=== PATIENT | female | born 1990 | race Caucasian/White ===

== ENCOUNTER 2019-09-02 10:26 | Outpatient (REF) | payer OTHER, SELFPAY ==
--- NOTE | 2019-09-02 14:30 | PAPFT_PTH ---
PATIENT: Haylie Ballesteros LOC: [facility] U#:[id number] AGE/SX: 29/F ROOM: RE09/02/[address]: Gabby Ferris : 1990 BED: DIS: 09/02/2019 SPEC #: [id number] RECD: 09/03/19 12:40 STATUS: ANIL REQ #: [id number] NEHAL: 09/02/19 14:[address]: Gabby Ferris DEPT: [facility] Cytology RECD BY: Leta Jose ENTERED: 09/03/19 12:41 SP TYPE: PAPFT OTHR DR: Sharee Costa MD Tissues: 1 - CX/ENDOCX FOR PAP SMEARS Procedures: PAP THIN PREP/UVM Screening Comments: [id number]
== END 2019-09-02 10:46 ==
LOC: NCHCN 10:26
PROVIDERS: PCP Family Medicine; Visit Provider Physician Assistant Medical
DX: Z12.4 Encounter for screening for malignant neoplasm of cervix (principal); Z01.419 Encounter for gynecological examination (general) (routine) without abnormal findings
CPT/HCPCS: 88142

== ENCOUNTER 2019-09-02 18:32 | Outpatient (REF) | payer OTHER, SELFPAY ==
[2019-09-02 21:53] LABS: HCT 40.2 % (36.0-46.0); HGB 13.6 g/dL (12.0-15.5); Mean Corp. HGB Concentration 33.8 g/dL (32.0-36.0); Mean Corpuscular Volume 88.7 fL (80-95); Mean Platelet Volume 12.3 fL (8.0-11.0); Platelet Count 232 x1000/uL (130-400); RBC 4.53 m/cumm (4.00-5.20); RBC Distribution Width 12.1 % (11.7-14.6); White Blood Cell Count 7.77 k/cumm (4.4-10.8)
[2019-09-03 00:04] LABS: TSH 0.97 uIU/mL (0.36-3.74)
== END 2019-09-02 18:52 ==
LOC: NCHCN 18:32
PROVIDERS: PCP Family Medicine; Visit Provider Nurse Practitioner Family
DX: R53.83 Other fatigue (principal)
CPT/HCPCS: 85027; 84443

== ENCOUNTER 2020-04-15 19:07 | Outpatient (REF) | payer MEDICAID, SELFPAY ==
[2020-04-17 14:51] LABS: Chlamydia Result Negative (Negative); GC Result Negative (Negative)
== END 2020-04-15 19:08 | disposition home or self-care (01) ==
LOC: NCHCN 19:07
PROVIDERS: PCP Family Medicine; Visit Provider Physician Assistant Medical
DX: N89.8 Other specified noninflammatory disorders of vagina (principal)
CPT/HCPCS: 87491; 87591; 87480; 87510; 87660

== ENCOUNTER 2020-06-24 14:50 | Outpatient (REF) | payer MEDICAID, SELFPAY ==
[2020-06-26 15:19] LABS: COVID-19 RT-PCR UVMMC Result Negative (Negative)
== END 2020-06-24 14:51 | disposition home or self-care (01) ==
LOC: LBN 14:50
PROVIDERS: PCP Family Medicine; Visit Provider Physician Assistant Medical
DX: J06.9 Acute upper respiratory infection, unspecified (principal); Z20.822 Contact with and (suspected) exposure to COVID-19
CPT/HCPCS: U0003

== ENCOUNTER 2020-08-19 03:03 | Emergency (ER) | payer MEDICAID, SELFPAY ==
[2020-08-19 03:13] VITALS: BP 114/74; PULSE 83; RESP 16; TEMP 36.2; O2SAT 97
--- NOTE | 2020-08-19 03:19 | ED.GENADUL_ITS ---
Discharge Plan Disposition Patient Disposition: HOME Condition: Improving Discharge Details Clinical Impression: Urinary tract infection Primary Care Provider: Sharee Costa ED Provider: Apollo Hi Home Meds and New Rx's Prescriptions: New cephalexin 500 mg capsule 500 mg PO TID 7 Days Qty: 21 RF: 0 Continued zolpidem 5 MG tablet 5 mg PO HS RF: 0 escitalopram oxalate [Lexapro] 10 mg Tablet 15 mg PO DAILY RF: 0 Discharge Instructions Instructions: Urinary Tract Infection in Women (ED) Additional Instructions: Home to rest this evening. May use the provided Pyridium to help decrease burning and discomfort. This will likely turn your urine orange. Take antibiotics as prescribed. May continue Tylenol and/or ibuprofen as needed for pain Return to the ER for any acute concerns. Medical Decision Making This is a 30-year-old female reports 3 days of urinary urgency, frequency, burning. Does report having outpatient urinalysis performed with results still pending. Developed some achy back pain tonight for which she sought evaluation in the ED. Patient arrives to the ER pleasant, interactive, afebrile. Her exam notes mild suprapubic tenderness without rebound or guarding. Urinalysis consistent with acute UTI. Will treat with Pyridium, Keflex. She is stable and appropriate for outpatient management. HPI General Mode of arrival: ambulatory . Date/Time Provider Initiated Documentation: 08/19/20 03:13 . Limitations to Documentation: no limitations . Information obtained by: patient . History of Present Illness 30 year old F presents to the emergency department with the chief complaint of Dysuria for 3 days, described as moderate, and is localized to the abdomen and pelvis. Patient reports no radiation. Patient started experiencing this day(s) and it has been intermittent. No relieving factors improve symptom(s), No exacerbating factors reported . Patient notes denies fever/chills and nausea/vomiting. Patient did receive the following treatments prior to arrival, none Related Data Home Medications Medication Instructions Recorded Confirmed zolpidem 5 mg PO HS 08/30/12 08/19/20 cephalexin 500 mg PO TID 7 Days #21 cap 08/19/20 escitalopram oxalate [Lexapro] 15 mg PO DAILY 08/19/20 08/19/20 Previous Rx's Medication Instructions Recorded cephalexin 500 mg PO TID 7 Days #21 cap 08/19/20 Allergies Allergy/AdvReac Type Severity Reaction Status Date / Time sertraline HCl [From Zoloft] Allergy Severe Anaphylaxsi Unverified 12/17/14 09:38 s General Stated Complaint: Urinary NGOZI: 3 Review of Systems Narrative: No other illness. 6 systems reviewed and otherwise negative [facility] Social History Smoking/Tobacco Use Status: Current every day Tobacco Type: e-cigarettes Smoking risk assessment performed?: Yes Alcohol Intake: former Drug use: Occasionally Substance use type: marijuana Do you feel safe at home: Yes Do you feel safe in your relationship?: Yes Exam Narrative Exam Narrative: GEN: awake, alert, oriented 3. Pleasant, well groomed, interactive. HEAD: Normocephalic, atraumatic EYES: PERRL, EOMI NECK: Full ROM, no OSMANY, no menigismus CHEST/RESP: Nontender, clear to auscultation bilateral, no wheeze/rhonchi/rales CARDIOVASCULAR: RRR, no murmur, rub shabana. 2+ Rad pulse bilateral ABDOMEN: Soft, minimal mild suprapubic tenderness to palpation, no mass. +Bowel sounds EXT: Full ROM, no edema, no rash Neuro: Grossly normal neurologic exam, conversant, interactive. Psych: Speech fluent, thoughts congruent, affect normal Course Vital Signs Vital signs: Vital Signs Temperature 36.2 C L 08/19/20 03:13 Pulse 83 08/19/20 03:13 Respiratory Rate 16 08/19/20 03:13 Blood Pressure 114/74 08/19/20 03:13 Pulse Oximetry 97 08/19/20 03:13 Temperature 36.2 C L 08/19/20 03:13 Temperature Source Skin 08/19/20 03:13 Pulse 83 08/19/20 03:13 Respiratory Rate 16 08/19/20 03:13 Blood Pressure 114/74 08/19/20 03:13 Blood Pressure Position Standing 08/19/20 03:13 Pulse Oximetry 97 08/19/20 03:13 Oxygen Delivery Method Room Air 08/19/20 03:13 Oxygen Flow Rate 0 08/19/20 03:13 Pain Level 8 08/19/20 03:13
[2020-08-19 03:26] LABS: Bilirubin Negative (Negative); Blood Large (Negative); Clarity Sl Cloudy (Clear); Glucose Negative (Negative); Ketones Negative (Negative); Leukocyte Esterase Small (Negative); Nitrite Negative (Negative); Specific Gravity 1.025 (1.005-1.025); Urobilinogen 0.2 EU/dL (Up TO 0.2)
[2020-08-19] MEDS: Phenazopyridine 200 MG TAB PO (03:29)
[2020-08-19] MEDS: Phenazopyridine 100 MG TAB, 2 TABS/BTL PO (03:30)
[2020-08-19 03:36] LABS: Epithelial Cells Few HPF (Negative)
[2020-08-19 03:37] LABS: Bacteria Few HPF (Negative); C & S Indicated? Yes; Casts Negative LPF (Negative); Crystals Negative HPF (Negative); Mucus Negative (Negative)
[2020-08-19] MEDS: Cephalexin 500 MG CAP, 4 CAPS/BTL PO (03:48)
[2020-08-19] MEDS: Acetaminophen 500 MG TAB 1000 MG PO (03:48)
--- NOTE | 2020-08-21 10:43 | W.ED.FU ---
Date of service: 08/19/20 on keflex with staph uti, appropriate coverage post chart review
== END 2020-08-19 03:35 | disposition home or self-care (01) ==
PROVIDERS: Emergency Provider Emergency Medicine; PCP Family Medicine
DX: N39.0 Urinary tract infection, site not specified (principal)
CPT/HCPCS: 81025; 87077; 99283; 81003; 81015; 87086; 87186

== ENCOUNTER 2020-12-09 14:43 | Outpatient (REF) | payer MEDICAID, SELFPAY ==
[2020-12-10 14:46] LABS: Chlamydia Result Negative (Negative); GC Result Negative (Negative)
== END 2020-12-09 14:44 | disposition home or self-care (01) ==
LOC: LBN 14:43
PROVIDERS: PCP Family Medicine; Visit Provider Obstetrics & Gynecology
DX: Z11.3 Encounter for screening for infections with a predominantly sexual mode of transmission (principal); Z30.430 Encounter for insertion of intrauterine contraceptive device
CPT/HCPCS: 87491; 87591

== ENCOUNTER 2021-05-01 04:10 | Emergency (ER) | payer MEDICAID, SELFPAY ==
[2021-05-01 04:18] VITALS: BP 117/73; PULSE 90; RESP 14; TEMP 36.7; O2SAT 100
--- NOTE | 2021-05-01 04:33 | ED.GENADUL_ITS ---
Discharge Plan Disposition Patient Disposition: HOME Condition: Stable Discharge Details Clinical Impression: Nausea vomiting and diarrhea Primary Care Provider: Gabby Ferris ED Provider: Sunil Flores Home Meds and New Rx's Prescriptions: New ondansetron 4 mg tablet,disintegrating 4 mg PO Q8H PRN (Reason: nausea and vomiting) Qty: 30 0RF Continued zolpidem 5 MG tablet 5 mg PO HS 0RF Label Comments: uses prn escitalopram oxalate [Lexapro] 10 mg Tablet 15 mg PO DAILY 0RF clonazepam 1 mg Tablet 1 mg PO DAILY 0RF albuterol 90 mcg/actuation Aerosol 90 mcg INHALATION PRN PRN0RF Kyleena 17.5 mcg/24 hrs (5 yrs) 19.5 mg Intrauterine Device 1 device INTRAUTERINE ONCE 0RF Rx Instructions: as a single dose Discharge Instructions Instructions: Acute Nausea and Vomiting (ED) Additional Instructions: your symptoms are likely related to a food born illness and should resolve in a day or two drink fluids to stay hydrated and for the diarrhea you can take imodim or pepto bismol if you feel more ill, have severe worsening pain or persistent vomit return to the emergency department Medical Decision Making 31 yo female comes in with n/v and diarrhea. She states around 8pm last night she started to have diarrhea and then an hour later started to have vomit. This has continued throughout the night every 30 minutes or so and so she came here. She denies any fevers, chills, chest pain, and when she is vomitting she has upper abdomen pain otherwise no pain. She denies any recent travel/antibiotics. She is in no distress on exam. She has a soft nontender abdomen on exam. I suspect this is food related given rapid onset of symptoms, and she does think it may have been a chicken salad she ate yesterday. She felt well all day yesterday prior to these symptoms. Will treat her with zofran and fluids and check her electrolytes. Given her benign abdominal exam doubt surgical pathology such as appendicitis or cholecystitis or sbo. She just started with the symptoms so stool sample testing not indicated and has no risk factors for c diff. pt with mild leukocytosis likely reactive from the vomit vs inflammatory from possible gastroenteritis. Has mild increase in anion gap likely from dehydration. She feels much better, has no abdominal tenderness and is tolerating po. Suspect food related illness, will provide zofran and advised to take imodium. Advised to see if pcp if not better in a few days and return precautions given Differential Diagnosis Differential Diagnosis: food related illness, gastroenteritis, electrolyte abnormality Lab Data Lab results reviewed: Yes I reviewed the patient's lab results. HPI General Mode of arrival: ambulatory . Date/Time Provider Initiated Documentation: 05/01/21 04:12 . Limitations to Documentation: no limitations . Information obtained by: patient . History of Present Illness 31 year old F presents to the emergency department with the chief complaint of vomit and di arrhea, described as moderate, Patient started experiencing this hour(s) (8) and it has been constant and intermittent. improves with No relieving factors improve symptom(s), No exacerbating factors reported . Patient notes denies chest pain, diaphoresis and fever/chills. Patient did receive the following treatments prior to arrival, none Related Data Home Medications Medication Instructions Recorded Confirmed zolpidem 5 mg tablet 5 mg PO HS 08/30/12 05/01/21 escitalopram oxalate 10 mg tablet 15 mg PO DAILY 08/19/20 01/19/21 (Lexapro) albuterol 90 mcg/actuation aerosol 90 mcg INHALATION PRN PRN 05/01/21 05/01/21 inhaler clonazepam 1 mg tablet 1 mg PO DAILY 05/01/21 05/01/21 levonorgestrel (Kyleena) 1 device INTRAUTERINE ONCE 05/01/21 05/01/21 ondansetron 4 mg disintegrating 4 mg PO Q8H PRN #30 tab 05/01/21 tablet Previous Rx's Medication Instructions Recorded ondansetron 4 mg disintegrating 4 mg PO Q8H PRN #30 tab 05/01/21 tablet Allergies Allergy/AdvReac Type Severity Reaction Status Date / Time sertraline HCl [From Zoloft] Allergy Severe Anaphylaxsi Unverified 05/01/21 04:27 s General Stated Complaint: Nausea/Vomit/Diar NGOZI: 3 Review of Systems All systems reviewed & are unremarkable except as noted in HPI and below Constitutional Constitutional: Denies chills, Denies fever(s) and Denies weakness Cardiovascular Cardiovascular: Denies chest pain and Denies dyspnea Respiratory Respiratory: Denies cough and Denies dyspnea Genitourinary Genitourinary: Denies dysuria Integumentary/Breasts Skin/Breast: Denies rash Neurologic Neurologic: Denies weakness PFSH All Active Problems (Updated 05/01/21 @ 05:29 by Sunil Flores MD) Nausea vomiting and diarrhea (Acute) Irregular menses (Acute) Urinary tract infection (Acute) Social History Smoking/Tobacco Use Status: Current every day Tobacco Type: e-cigarettes Smoking risk assessment performed?: Yes Alcohol Intake: current Alcohol Intake frequency: a few times a month Drug use: Daily Substance use type: marijuana Do you feel safe at home: Yes Do you feel safe in your relationship?: Yes History History 0 Para Hx # Term Pregnancies Multiple births Hx # Pregnancies Ectopic pregnancies AB induced Hx Number of Living Children AB spontaneous Exam Const General: no acute distress Orientation: alert HENMT Head: normal to inspection Ears: external ears normal General nose exam: external nose normal Mouth: moist mucous membranes Eyes General: appearance normal, both eyes and all related structures Neck Neck: normal visual inspection Resp Effort & Inspection: normal respiratory effort and able to speak in complete s entences Cardio Rate: regular rate GI Palpation: soft and nontender Skin General skin exam: no rashes or lesions noted Neuro General: patient alert and patient oriented x3 Extrem General: normal to inspection Psych Mental Status: mental status grossly normal Course Vital Signs Vital signs: Vital Signs Temperature 36.7 C 05/01/21 04:18 Pulse 90 05/01/21 04:18 Respiratory Rate 14 05/01/21 04:18 Blood Pressure 117/73 05/01/21 04:18 Pulse Oximetry 100 05/01/21 04:18 Temperature 36.7 C 05/01/21 04:18 Temperature Source Temporal Artery Scan 05/01/21 04:18 Pulse 90 05/01/21 04:18 Respiratory Rate 14 05/01/21 04:18 Respiratory Effort Non-Labored 05/01/21 04:21 Blood Pressure 117/73 05/01/21 04:18 Blood Pressure Position Sitting 05/01/21 04:18 Pulse Oximetry 100 05/01/21 04:18 Oxygen Delivery Method Room Air 05/01/21 04:18 Oxygen Flow Rate 0 05/01/21 04:18 Pain Level 4 05/01/21 04:18 PAWSS Have you Been Recently Intoxicated or Drunk Within the Last 30 days?: No Have you Ever Experienced Previous Episodes of Alcohol Withdrawal?: No Have you ever Experienced Withdrawal Seizures?: No Have you ever Experienced Delirium Tremens(DT)s?: No Have you ever undergone Alcohol Rehabilitation Treatment (i.e, inpt ot outpatient treatment programs)?: No Have you ever Experienced Blackouts?: No Have you ever Combined Alcohol with other Downers within the last 90 days?: No Have you ever Combined Alcohol with any other Substance of Abuse during the last 90 days?: No Positive Blood Alcohol level on Presentation? [PCS.BAL]: No Evidence of Increased Autonomic Activity (i.e. HR>120, tremor, sweating, agitation, nausea)?: No Result: 0
[2021-05-01] MEDS: Normal Saline 1,000 ML 1000 ML IV (04:40)
[2021-05-01] MEDS: Ondansetron 4 MG/2 ML VIAL IVP (04:40)
[2021-05-01 04:48] LABS: Abs Immature Grans 0.04 10^3/uL (0.0-0.06); Absolute Basophil Count 0.04 10^3/uL (0.0-0.2); Absolute Eosinophil Count 0.02 10^3/uL (0.0-0.7); Absolute Lymphocyte Count 0.28 10^3/uL (1.2-3.4); Absolute Neutrophil Count 11.67 10^3/uL (1.2-6.7); Basophils % 0.3; Eosinophils % 0.2; HCT 47.3 % (36.0-46.0); HGB 15.7 g/dL (11.2-15.7); Immature Grans % 0.3; Lymphocytes % 2.3; MCH 29.3 pg (27.0-33.0); MCHC 33.2 % (32.0-36.0); MCV 88.2 fL (80-95); MPV 11.1 fL (8.0-11.0); Monocytes % 2.7; Neutrophils % 94.2; Nucleated RBC 0 %; Platelet Count 200 10^3/uL (130-400); RBC 5.36 10^6/uL (3.93-5.22); RDW 11.8 % (11.7-14.6); RDW-SD 37.8 fL; WBC 12.39 10^3/uL (4.4-10.8)
[2021-05-01 04:50] LABS: Absolute Monocyte Count 0.33 10^3/uL (0.1-0.8)
[2021-05-01 05:01] LABS: ALT 18 U/L (14-59); AST 13 U/L (15-37); Alkaline Phosphatase 64 U/L (46-116); BUN 23 mg/dL (7-18); Bilirubin, Total 1.3 mg/dL (0.2-1.0); CREATININE 0.9 mg/dL (0.55-1.02); Calcium 9.2 mg/dL (8.5-10.1); Chloride 104 mmol/L (98-107); Glucose 118 mg/dL (74-106); Lipase 56 U/L (73-393); Magnesium 2.1 mg/dL (1.8-2.4); Potassium 4.6 mmol/L (3.5-5.1); Sodium 138 mmol/L (136-145); Total Protein 8.7 g/dL (6.4-8.2)
[2021-05-01 05:36] VITALS: BP 106/63; PULSE 79; RESP 12; TEMP 36.9; O2SAT 100
[2021-05-01 05:55] VITALS: BP 117/73; PULSE 90; RESP 12; TEMP 36.9; O2SAT 100
== END 2021-05-01 05:58 | disposition home or self-care (01) ==
PROVIDERS: Emergency Provider Emergency Medicine; PCP Physician Assistant Medical
DX: R19.7 Diarrhea, unspecified (principal); R11.2 Nausea with vomiting, unspecified; D72.829 Elevated white blood cell count, unspecified
CPT/HCPCS: 36415; 80053; 81025; 83690; 96361; 96374; 99284; 83735; 85025; 99283; J2405

== ENCOUNTER 2021-05-01 15:51 | Emergency (ER) | payer MEDICAID, SELFPAY ==
[2021-05-01 15:55] VITALS: BP 98/65; PULSE 103; RESP 16; TEMP 37.6; O2SAT 100
--- NOTE | 2021-05-01 16:13 | ED.GENADUL_ITS ---
Discharge Plan Disposition Patient Disposition: HOME Condition: Stable Discharge Details Clinical Impression: Sludge in gallbladder, Gastroenteritis Primary Care Provider: Gabby Ferris ED Provider: Janet Collins Home Meds and New Rx's Prescriptions: Continued zolpidem 5 MG tablet 5 mg PO HS 0RF Label Comments: uses prn escitalopram oxalate [Lexapro] 10 mg Tablet 15 mg PO DAILY 0RF clonazepam 1 mg Tablet 1 mg PO DAILY 0RF albuterol 90 mcg/actuation Aerosol 90 mcg INHALATION PRN PRN0RF Kyleena 17.5 mcg/24 hrs (5 yrs) 19.5 mg Intrauterine Device 1 device INTRAUTERINE ONCE 0RF Rx Instructions: as a single dose ondansetron 4 mg tablet,disintegrating 4 mg PO Q8H PRN (Reason: nausea and vomiting) Qty: 30 0RF Discharge Instructions Instructions: Gastroenteritis (ED) Additional Instructions: CT shows some sludge in gallbladder however no evidence for kidney stones, no evidence for kidney infection or bladder infection. Please take Tylenol or Ibuprofen with food every 4-6 hours as needed for pain and swelling. Follow up with primary care provider in 3-5 days. Return to ED sooner if any worsening or concerns. Increase oral fluids. Covid test is still pending, if this comes back positive we will call you. Please wear a mask or quarentine until the result returns. Referrals: Gabby Ferris PA [Primary Care Provider] - 3 days Medical Decision Making 31-year-old female presents to the ED for the second time today with complaint of Fever and body aches. She was seen earlier for N/V/D and sent home with Ria. She reports now running a fever of 101 t max with ongoing nausea and back pain. She was slightly tachycardic at 103 and BP of 98 systolic. Mild llq abd pain with palpation. Denies any sore throat, ear pain. Patient is unvaccinated for Covid. Will repeat CBC, CMP, do a urinalysis and swab for Covid. CBC shows no leukocytosis, CMP largely within normal limits bilirubin is 1.3 with slightly elevated. Urinalysis shows 40 ketones large blood no leukocytes no nitrites. Is a 20 RBCs. Covid is pending at this time. CT Abd Pelvis WO: FINDINGS: Limitations: Limited by noncontrast technique. Lungs: No concerning finding. Liver: The liver is unremarkable. Gallbladder and bile ducts: The gallbladder demonstrates layering density consistent with noncalcified stones or sludge. No abnormal distention, wall thickening or pericholecystic fluid. No biliary ductal dilatation. Pancreas: The pancreas is unremarkable. Spleen: The spleen is unremarkable. Adrenal glands: The adrenal glands are unremarkable. Kidneys and ureters: No hydronephrosis or nephrolithiasis. Stomach and bowel: Unremarkable. No obstruction. No mucosal thickening. Appendix: No evidence of appendicitis. Intraperitoneal space: Unremarkable. No free air. No significant fluid collection. Vasculature: The aorta is unremarkable. Lymph nodes: Unremarkable. No enlarged lymph nodes. Urinary bladder: No focal wall thickening of the urinary bladder. Reproductive: Intrauterine contraceptive device is seen. Uterus and adnexa are otherwise unremarkable. Bones/joints: Unremarkable. No acute fracture. Soft tissues: Unremarkable. IMPRESSION: No detectable acute abdominopelvic process or etiology for abdominal pain. Thank you for allowing us to participate in the care of your patient. Dictated and Authenticated by: Baylee Pratt DO Discussed CT results and lab results with patient who verbalized understanding. Patient has received a liter of normal saline. Discussed gastroenteritis and follow-up with PCP patient verbalized understanding. This text was generated using [employer] dictation system, please disregard any oddities of phrase or misspellings. HPI General Mode of arrival: ambulatory . Date/Time Provider Initiated Documentation: 05/01/21 15:52 . Limitations to Documentation: no limitations . Information obtained by: patient, RN notes reviewed and old records reviewed . HPI Narrative: 31 year old female presents to the ED for the second time today with complaint of Fever and body aches. She was seen earlier for N/V/D and sent home with Ria. She reports now running a fever of 101 t max with ongoing nausea and back pain. She was slightly tachycardic at 103 and BP of 98 systolic. Mild llq abd pain with palpation. Denies any sore throat, ear pain. Patient is unvaccinated for Covid. Related Data Home Medications Medication Instructions Recorded Confirmed zolpidem 5 mg tablet 5 mg PO HS 08/30/12 05/01/21 escitalopram oxalate 10 mg tablet 15 mg PO DAILY 08/19/20 05/01/21 (Lexapro) albuterol 90 mcg/actuation aerosol 90 mcg INHALATION PRN PRN 05/01/21 05/01/21 inhaler clonazepam 1 mg tablet 1 mg PO DAILY 05/01/21 05/01/21 levonorgestrel (Kyleena) 1 device INTRAUTERINE ONCE 05/01/21 05/01/21 ondansetron 4 mg disintegrating 4 mg PO Q8H PRN #30 tab 05/01/21 05/01/21 tablet Previous Rx's Medication Instructions Recorded ondansetron 4 mg disintegrating 4 mg PO Q8H PRN #30 tab 05/01/21 tablet Allergies Allergy/AdvReac Type Severity Reaction Status Date / Time sertraline HCl [From Zoloft] Allergy Severe Anaphylaxsi Unverified 05/01/21 16:01 s General Stated Complaint: Nausea/Vomit/Diar NGOZI: 3 Review of Systems All systems reviewed & are unremarkable except as noted in HPI and below Constitutional Constitutional: Reports fever(s) Gastrointestinal Gastrointestinal: Denies abdominal pain and Reports nausea Genitourinary Genitourinary: Denies difficulty voiding and Denies dysuria Musculoskeletal Musculoskeletal: Reports back pain PFSH All Active Problems (Updated 05/01/21 @ 17:56 by Janet Collins) Nausea vomiting and diarrhea (Acute) Sludge in gallbladder (Acute) Gastroenteritis (Acute) Irregular menses (Acute) Urinary tract infection (Acute) Social History Smoking/Tobacco Use Status: Current every day Tobacco Type: e-cigarettes Smoking risk assessment performed?: Yes Alcohol Intake: current Alcohol Intake frequency: a few times a month Alcohol type: wine and hard liquor Drug use: Daily Substance use type: marijuana Do you feel safe at home: Yes Do you feel safe in your relationship?: Yes History History 0 Para Hx # Term Pregnancies Multiple births Hx # Pregnancies Ectopic pregnancies AB induced Hx Number of Living Children AB spontaneous Exam Narrative Exam Narrative: Constitutional: Alert and oriented x3. Appears stated age. Normal body habitus. Head: Normocephalic, no trauma. Eyes: Pupils PERRL, Red reflex noted, EOM's intact. Eyelids symmetrical without lesions, discharge, or swelling. ENT: Bilateral TM's WNL, External ear normal to inspection, no mastoid TTP, swelling, or erythema, Nasal turbinates WNL, no nasal discharge. Normal dentition, Posterior pharynx WNL, no exudate. Chest: RRR, Normal S1, S2, distal pulses intact. Resp: Lungs clear to auscultation bilaterally, no wheezes, rales, or rhonchi. Abdomen: Soft, non-distended, Normoactive bowel sounds all 4 quads. Musculoskeletal: Normal gait, 5/5 strength to all four extremities. Skin: No suspicious rashes or lesions. Capillary refill less than 2 sec. Neurologic: Cranial nerves II-XII intact. Alert and oriented x 3. Motor: No deficits noted. Sensory: Intact bilaterally all 4 extremities. Reflexes: DTR's intact bilaterally.. Hematologic/Lymphatic: No ecchymosis, no lymphadenopathy. Course Vital Signs Vital signs: Vital Signs Temperature 37.6 C 05/01/21 15:55 Pulse 103 H 05/01/21 15:55 Respiratory Rate 16 05/01/21 15:55 Blood Pressure 98/65 L 05/01/21 15:55 Pulse Oximetry 100 05/01/21 15:55 Temperature 37.6 C 05/01/21 15:55 Temperature Source Temporal Artery Scan 05/01/21 15:55 Pulse 103 H 05/01/21 15:55 Respiratory Rate 16 05/01/21 15:55 Respiratory Effort Non-Labored 05/01/21 15:57 Blood Pressure 98/65 L 05/01/21 15:55 Blood Pressure Position Sitting 05/01/21 15:55 Pulse Oximetry 100 05/01/21 15:55 Oxygen Delivery Method Room Air 05/01/21 15:55 Oxygen Flow Rate 0 05/01/21 15:55 Pain Level 6 05/01/21 15:55 PAWSS Have you Been Recently Intoxicated or Drunk Within the Last 30 days?: No Have you Ever Experienced Previous Episodes of Alcohol Withdrawal?: No Have you ever Experienced Withdrawal Seizures?: No Have you ever Experienced Delirium Tremens(DT)s?: No Have you ever undergone Alcohol Rehabilitation Treatment (i.e, inpt ot outpatient treatment programs)?: No Have you ever Experienced Blackouts?: No Have you ever Combined Alcohol with other Downers within the last 90 days?: No Have you ever Combined Alcohol with any other Substance of Abuse during the last 90 days?: No Positive Blood Alcohol level on Presentation? [PCS.BAL]: No Evidence of Increased Autonomic Activity (i.e. HR>120, tremor, sweating, agitation, nausea)?: No Result: 0
[2021-05-01 16:24] LABS: Bilirubin Negative (Negative); Blood Large (Negative); Clarity Clear (Clear); Glucose Negative (Negative); Ketones 40 mg/dL (Negative); Leukocyte Esterase Negative (Negative); Nitrite Negative (Negative); Specific Gravity >= 1.030 (1.005-1.025); Urobilinogen 0.2 EU/dL (Up TO 0.2)
[2021-05-01] MEDS: Normal Saline 1,000 ML 1000 ML IV (16:28)
--- NOTE | 2021-05-01 16:30 | DI.CT_ITS ---
Exam(s) CT ABDOMEN PELVIS WO EXAM: CT ABDOMEN PELVIS WO CLINICAL HISTORY: Back Pain, LLQ pain, Hematuria. TECHNIQUE: Imaging Protocol: Axial computed tomography images with coronal and sagittal reformatted images were created and reviewed CONTRAST MATERIAL: Intravenous: none Oral: None COMPARISON: No exams were available for comparison FINDINGS: VISUALIZED LUNG BASES: No nodules nor pleural effusions evident. ABDOMEN: There is no ascites. LIVER: There are no obvious focal hepatic lesions evident of this noninfused study. GALLBLADDER/BILIARY: No obvious gallbladder pathology. CBD is not dilated. PANCREAS: No evidence of pancreatic mass nor dilatation of the pancreatic duct. SPLEEN: Spleen is not enlarged. No obvious intrasplenic lesions. ADRENALS: There are no significant adrenal masses. KIDNEYS:No cysts evident. No solid renal masses. No calculi nor hydronephrosis. . ABDOMINAL AORTA: Abdominal aorta is not enlarged. LYMPH NODES: There is no retroperitoneal nor paraaortic adenopathy. ABDOMINAL WALL: No evidence of significant anterior abdominal wall nor inguinal hernia. GI: Bowel loops are fluid-filled but not significantly dilated. Colon is not collapsed. PELVIS: LYMPH NODES: There is no intrapelvic nor inguinal adenopathy. GI: No evidence of appendicitis.No evidence of sigmoid diverticulitis. URINARY BLADDER: No calculi nor obvious masses evident REPRODUCTIVE: There is an IUD in the uterus which appears to be in satisfactory position. Follicular cysts are noted in the ovaries. No obvious extraovarian adnexal masses nor free fluid in the pelvis OSSEOUS: There is a nonexpansile 6 x 6 millimeter bone density in the posterior aspect of the right h ip acetabulum. This is probably benign bone island. No lytic osseous lesions. No fractures evident Sacroiliac joints unremarkable. IMPRESSION: 1. There is an IUD in the uterus which appears to be in satisfactory position. No significant abnorm al adnexal findings although the right ovary is somewhat difficult to delineate from the adjacent flu id filled small bowel loops. There are no obvious extraovarian adnexal masses nor free fluid in the pelvis. 2. Fluid-filled but not dilated small bowel loops. Correlation with any enteritis clinical findings recommended. There is no mesenteric lymphadenopathy. 3. Appendix is difficult to locate is a separate structure but there is no obvious evidence of acute appendicitis. No diverticulitis. RADIATION DOSE DELIVERED: 586.48mGy.cm Total DLP DATA REPOSITORY: All CT scans at this facility are submitted to the National Radiology Data Registry (NRDR) Dose Index Registry (DIR) with the [employer] (ACR). RADIATION OPTIMIZATION: All CT scans at this facility use at least one of these dose optimization te chniques: automated exposure control; mA and/or kV adjustment per patient size (includes targeted exa ms where dose is matched to clinical indication); or iterative reconstruction.
[2021-05-01 16:32] LABS: Bacteria Negative HPF (Negative); C & S Indicated? No; Casts Negative LPF (Negative); Crystals Negative HPF (Negative); Epithelial Cells Few HPF (Negative); Mucus Negative (Negative)
[2021-05-01 16:38] LABS: Source Nasal/Nares
[2021-05-01 16:39] LABS: Abs Immature Grans 0.02 10^3/uL (0.0-0.06); Absolute Basophil Count 0.02 10^3/uL (0.0-0.2); Absolute Lymphocyte Count 0.24 10^3/uL (1.2-3.4); Absolute Monocyte Count 0.24 10^3/uL (0.1-0.8); Absolute Neutrophil Count 4.72 10^3/uL (1.2-6.7); Basophils % 0.4; HCT 41.2 % (36.0-46.0); HGB 13.7 g/dL (11.2-15.7); Immature Grans % 0.4; Lymphocytes % 4.6; MCH 29.1 pg (27.0-33.0); MCHC 33.3 % (32.0-36.0); MCV 87.5 fL (80-95); MPV 11.4 fL (8.0-11.0); Monocytes % 4.6; Nucleated RBC 0 %; Platelet Count 158 10^3/uL (130-400); RBC 4.71 10^6/uL (3.93-5.22); RDW 11.8 % (11.7-14.6); RDW-SD 38.3 fL; WBC 5.24 10^3/uL (4.4-10.8)
[2021-05-01 16:54] LABS: ALT 11 U/L (14-59); AST 11 U/L (15-37); Alkaline Phosphatase 53 U/L (46-116); Anion Gap 10.7 mmol/L (3-11); BUN 17 mg/dL (7-18); Bilirubin, Total 1.3 mg/dL (0.2-1.0); CO2 22.3 mmol/L (21.0-32.0); CREATININE 0.9 mg/dL (0.55-1.02); Calcium 8.4 mg/dL (8.5-10.1); Chloride 104 mmol/L (98-107); Glucose 100 mg/dL (74-106); Magnesium 1.8 mg/dL (1.8-2.4); Potassium 3.8 mmol/L (3.5-5.1); Sodium 137 mmol/L (136-145); Total Protein 7.3 g/dL (6.4-8.2)
[2021-05-01 16:57] LABS: HCG Qual (Serum) Negative
--- NOTE | 2021-05-01 17:30 | DI.VRAD_ITS ---
PROCEDURE INFORMATION: Exam: CT Abdomen And Pelvis Without Contrast Exam date and time: 05/01/2021 4:39 PM Age: 31 years old Clinical indication: Other: Back pain, llq pain, hematuria TECHNIQUE: Imaging protocol: Computed tomography of the abdomen and pelvis without contrast. Radiation optimization: All CT scans at this facility use at least one of these dose optimization techniques: automated exposure control; mA and/or kV adjustment per patient size (includes targeted exams where dose is matched to clinical indication); or iterative reconstruction. COMPARISON: No relevant prior studies available. FINDINGS: Limitations: Limited by noncontrast technique. Lungs: No concerning finding. Liver: The liver is unremarkable. Gallbladder and bile ducts: The gallbladder demonstrates layering density consistent with noncalcified stones or sludge. No abnormal distention, wall thickening or pericholecystic fluid. No biliary ductal dilatation. Pancreas: The pancreas is unremarkable. Spleen: The spleen is unremarkable. Adrenal glands: The adrenal glands are unremarkable. Kidneys and ureters: No hydronephrosis or nephrolithiasis. Stomach and bowel: Unremarkable. No obstruction. No mucosal thickening. Appendix: No evidence of appendicitis. Intraperitoneal space: Unremarkable. No free air. No significant fluid collection. Vasculature: The aorta is unremarkable. Lymph nodes: Unremarkable. No enlarged lymph nodes. Urinary bladder: No focal wall thickening of the urinary bladder. Reproductive: Intrauterine contraceptive device is seen. Uterus and adnexa are otherwise unremarkable. Bones/joints: Unremarkable. No acute fracture. Soft tissues: Unremarkable. IMPRESSION: No detectable acute abdominopelvic process or etiology for abdominal pain. Dictated and Authenticated by: Baylee Pratt MD. Ordering:CHRISTIAN Gonazles MD
[2021-05-01 18:16] VITALS: BP 93/60; PULSE 98; RESP 16; TEMP 37.7; O2SAT 100
[2021-05-01 18:18] LABS: COVID-19 PCR Negative (Negative)
== END 2021-05-01 18:27 | disposition home or self-care (01) ==
PROVIDERS: Emergency Provider Registered Nurse Emergency; PCP Physician Assistant Medical
DX: K82.8 Other specified diseases of gallbladder (principal); K52.9 Noninfective gastroenteritis and colitis, unspecified; K50.90 Crohn's disease, unspecified, without complications; R00.0 Tachycardia, unspecified; R10.32 Left lower quadrant pain; Z28.3 Underimmunization status
CPT/HCPCS: 36415; 80053; 87635; 96360; 99284; 74176; 81003; 81015; 83735; 84703; 85025

== ENCOUNTER 2021-05-31 02:44 | Outpatient (CLI) | payer MEDICAID, SELFPAY ==
[2021-05-31 14:36] LABS: ALT 21 U/L (14-59); AST 17 U/L (15-37); Albumin 4.3 g/dL (3.4-5.0); Alkaline Phosphatase 64 U/L (46-116); Anion Gap 4.8 mmol/L (3-11); BUN 14 mg/dL (7-18); CO2 29.2 mmol/L (21.0-32.0); CREATININE 0.7 mg/dL (0.55-1.02); Calcium 9.2 mg/dL (8.5-10.1); Calculated LDL 71 mg/dL (<100); Chloride 103 mmol/L (98-107); Cholesterol 138 mg/dL (<200); Glucose 90 mg/dL (74-106); HDL Cholesterol 58 mg/dL (40-60); Potassium 3.7 mmol/L (3.5-5.1); Sodium 137 mmol/L (136-145); Total Protein 7.6 g/dL (6.4-8.2); Triglyceride 46 mg/dL (<150)
== END 2021-05-31 02:45 | disposition home or self-care (01) ==
LOC: LBO 02:44
PROVIDERS: PCP Physician Assistant Medical; Referring Provider Surgery; Visit Provider Surgery
DX: K82.8 Other specified diseases of gallbladder (principal); R11.2 Nausea with vomiting, unspecified; R19.7 Diarrhea, unspecified; Z83.438 Family history of other disorder of lipoprotein metabolism and other lipidemia; Z97.5 Presence of (intrauterine) contraceptive device
CPT/HCPCS: 36415; 80053; 80061

== ENCOUNTER → 2021-06-04 00:09 | Outpatient (CLI) | payer MEDICAID, SELFPAY ==
--- NOTE | 2021-06-04 07:15 | DI.US_ITS ---
Exam(s) US ABDOMEN EXAM: US ABDOMEN CLINICAL HISTORY: s/s of chornic hole sludge in GB.hemangioma,nausea,diarrhea.r11.2 TECHNIQUE: Ultrasound abdomen performed using standard protocol. COMPARISON: CT CT ABDOMEN PELVIS WO from 05/01/2021 FINDINGS: ABDOMINAL AORTA AND IVC: Visualized portions normal caliber. PANCREAS: Normal where visualized. LIVER: Normal. Hepatopedal flow in the Portal Vein. The liver measures 14.7 cm long. There is a 3.4 x 3.3 x 2.4 cm hyperechoic lesion in the right lobe of the liver. GALLBLADDER:No evidence of cholelithiasis. No evidence of wall thickening. No pericholecystic fluid i dentified. BILIARY SYSTEM: Common bile duct measures < 7 mm. No intrahepatic biliary ductal dilation. WAHL'S SIGN: Negative. KIDNEYS: Kidneys are symmetric in size. No evidence of renal calculi. No evidence of hydronephrosis. No renal mass or cyst identified. SPLEEN: Not enlarged. ASCITES: None seen. IMPRESSION: 1. Unremarkable gallbladder. No biliary ductal dilatation or stones. 2. 3.4 x 3.4 x 2.4 cm hyperechoic lesion in the right lobe of the liver. Sonographically, this is goncalves ggestive of a hepatic hemangioma. CT or MRI of the liver using the hepatic hemangioma protocol is re commended for further evaluation. DATA REPOSITORY:
== END ==
PROVIDERS: PCP Physician Assistant Medical; Visit Provider Surgery
DX: R11.2 Nausea with vomiting, unspecified (principal); R19.7 Diarrhea, unspecified; K76.89 Other specified diseases of liver; K82.8 Other specified diseases of gallbladder; D18.03 Hemangioma of intra-abdominal structures
CPT/HCPCS: 76700

== ENCOUNTER → 2021-07-09 01:09 | Outpatient (CLI) | payer MEDICAID, SELFPAY ==
--- NOTE | 2021-07-09 07:15 | DI.NM_ITS ---
Exam(s) NM HEPATOBILIARY CCK GRP EXAM: NM HEPATOBILIARY CCK GRP CLINICAL HISTORY: ruq pain/fatty food intol/nausea/diarrhea, hemangioma. TECHNIQUE: Injected dose: 5 mCi Tc-99 mebrofenin Initial dynamic images: According to protocol. Post-Gallbladder fillin.9 mcg CCK was administered according to protocol. Addition images: According to protocol. COMPARISON: US US ABDOMEN from 06/04/2021 FINDINGS: Normal hepatic transit time. Prompt excretion into the small bowel. Prompt excretion into the gallbladder. The gallbladder ejection fraction was 80 percent which is wit hin normal limits. IMPRESSION: 1. No evidence of acute cholecystitis or acalculous disease. SNM guidelines: Gallbladder visualization should be present by 3 hours. Delayed aomofay-ml-hqtgj moreno sit beyond 60 min raises the suspicion for partial common bile duct (CBD) obstruction. Gallbladder ejection fraction <35% has a good correlation with acalculous disease (i.e., chronic acal culous cholecystitis, cystic duct syndrome, sphincter of Oddi disease).
== END ==
PROVIDERS: PCP Physician Assistant Medical; Visit Provider Surgery
DX: R10.11 Right upper quadrant pain (principal); R11.0 Nausea; R19.7 Diarrhea, unspecified; K52.9 Noninfective gastroenteritis and colitis, unspecified; Z83.438 Family history of other disorder of lipoprotein metabolism and other lipidemia
CPT/HCPCS: 78227

== ENCOUNTER 2021-07-14 14:09 | Outpatient (REF) | payer MEDICAID, SELFPAY ==
[2021-07-14 14:24] LABS: C Diff PCR Negative (Negative)
[2021-07-15 11:43] LABS: Campylobacter PCR Negative (Negative); Salmonella PCR Negative (Negative); Shiga Toxin PCR Negative (Negative); Shigella/Enteroinvasive Ecoli Negative (Negative)
[2021-07-16 20:59] LABS: Pancreatic Elastase, F >500 mcg/g
== END 2021-07-14 14:10 | disposition home or self-care (01) ==
LOC: LBN 14:09
PROVIDERS: PCP Physician Assistant Medical; Visit Provider Surgery
DX: R10.11 Right upper quadrant pain (principal); R11.0 Nausea; K52.9 Noninfective gastroenteritis and colitis, unspecified
CPT/HCPCS: 87493; 87505; 82656; 83630

== ENCOUNTER 2021-12-06 12:02 | Outpatient (REF) | payer MEDICAID, SELFPAY ==
[2021-12-08 10:33] LABS: COVID-19 RT-PCR UVMMC Result Negative (Negative)
== END 2021-12-06 12:03 | disposition home or self-care (01) ==
LOC: NCHCN 12:02
PROVIDERS: PCP Physician Assistant Medical; Visit Provider Physician Assistant Medical
DX: Z20.822 Contact with and (suspected) exposure to COVID-19 (principal); J02.9 Acute pharyngitis, unspecified
CPT/HCPCS: U0003

== ENCOUNTER 2022-04-06 11:53 | Emergency (ER) | payer MEDICAID, SELFPAY ==
[2022-04-06] VITALS (19 sets, daily range): BP systolic 89–118; BP diastolic 44–66; PULSE 62–82; RESP 15; TEMP 36.4; O2SAT 99–100
--- NOTE | 2022-04-06 11:54 | ED.GENADUL_ITS ---
Discharge Plan Disposition Patient Disposition: Home Condition: Stable Discharge Details Clinical Impression: Fall involving snowboard as cause of accidental injury, Low back pain Primary Care Provider: Gabby Ferris ED Provider: Hunter Jordan Home Meds and New Rx's Prescriptions: No Action ondansetron 4 mg tablet,disintegrating 4 mg PO Q6H PRN (Reason: nausea and vomiting) Qty: 20 0RF magnesium 250 mg tablet 500 mg PO DAILY loperamide [Imodium A-D] 2 mg tablet 2 mg PO Q6H PRN ondansetron HCl 8 mg tablet 8 mg PO Q6H PRN PRN (Reason: nausea and vomiting) Qty: 30 6RF ondansetron HCl 4 mg tablet 4 mg PO Q6H PRN (Reason: nausea and vomiting) Qty: 30 12RF zolpidem 5 MG tablet 5 mg PO HS Patient Comments: uses prn escitalopram oxalate [Lexapro] 10 mg Tablet 15 mg PO DAILY clonazepam 1 mg Tablet 1 mg PO DAILY albuterol 90 mcg/actuation Aerosol 90 mcg INHALATION PRN PRN Kyleena 17.5 mcg/24 hrs (5 yrs) 19.5 mg Intrauterine Device 1 device INTRAUTERINE ONCE Rx Instructions: as a single dose ondansetron 4 mg tablet,disintegrating 4 mg PO Q8H PRN (Reason: nausea and vomiting) Qty: 30 0RF vilazodone [Viibryd] 10 mg tablet 10 mg PO DAILY Patient Comments: TAKE ONE TABLET BY MOUTH ONCE DAILY TAKE IT FOOD 17 DAYS PRIOR TO SLEEP STUDY DECREASE TO HALF-TAB FOR THREE DAYS, THEN STOP Discharge Instructions Additional Instructions: You are seen in the emergency department for your low back pain. Your CAT scan showed no signs of any fractures in your back. Your x-ray showed no sign of any broken bones in your knee. Please take acetaminophen and ibuprofen on the bottle as needed for pain. The emergency department if you have worsening pain. Please follow-up with your primary care provider as needed next week. Discharge Data Discharge Date/Time-TO BE ENTERED AT DEPARTURE: 04/06/22 16:20 Medical Decision Making Primary survey intact. Reassuring shock with minimal hypotension which is not dissimilar to prior blood pressures on prior ED visits. Secondary survey patient has tenderness to her lumbar spine. Given midline lumbar spinal tenderness will proceed to CT. Given left knee pain will obtain left knee plain films. Will treat with ketorolac. Will treat with 1 L of IV fluid bolus and Lidoderm patch. 8 PM Patient's labs returned and were reassuring. As well as her imaging. She was discharged with return indications. Patient did have slightly low blood pressure at the time of checkout. She was mentating clearly. She had tolerated p.o. She received IV fluids. No nausea nor vomiting of no concern for intra-abdominal injury. Chronic conditions affecting the care of the patient: None History obtained from an outside historian: Paramedics External record review: N/A Diagnostic interpretations performed by me: Per my independent interpretation chest x-ray shows: Radiographs with no acute osseous abnormalities Medications: Analgesia Social determinants of health affecting disposition: Not applicable Response to therapies provided: Pain improved with analgesia. HPI General Date/Time Provider Initiated Documentation: 04/06/22 11:54 . HPI Narrative: This is a previously healthy 32-year-old female arriving via EMS in the setting of a fall that occurred this morning while she was snowboarding. Patient is a new snowboarder and was reportedly on the beginning slope. She was moving slowly when she fell and twisted and landed on her back and knees. She complains of pain mostly in her left knee and lower back. She denies loss of consciousness and neck pain. She was wearing a helmet at the time. She received prehospital acetaminophen via the IV. Related Data Home Medications Medication Instructions Recorded Confirmed zolpidem 5 mg tablet 5 mg PO HS 08/30/12 04/06/22 escitalopram oxalate 10 mg tablet 15 mg PO DAILY 08/19/20 04/06/22 (Lexapro) albuterol 90 mcg/actuation aerosol 90 mcg inhalation PRN PRN 05/01/21 04/06/22 inhaler clonazepam 1 mg tablet 1 mg PO DAILY 05/01/21 04/06/22 levonorgestrel 17.5 mcg/24 hrs 1 device intrauterine ONCE 05/01/21 04/06/22 (5yrs) 19.5mg intrauterine device (Kyleena) ondansetron 4 mg disintegrating 4 mg PO Q8H PRN nausea and 05/01/21 04/06/22 tablet vomiting #30 tabs ondansetron 4 mg disintegrating 4 mg PO Q6H PRN nausea and 05/27/21 04/06/22 tablet vomiting #20 tabs magnesium 250 mg tablet 500 mg PO DAILY 07/12/21 04/06/22 loperamide 2 mg tablet (Imodium 2 mg PO Q6H PRN 07/22/21 04/06/22 A-D) ondansetron HCl 8 mg tablet 8 mg PO Q6H PRN PRN nausea and 07/22/21 04/06/22 vomiting #30 tabs ondansetron HCl 4 mg tablet 4 mg PO Q6H PRN nausea and 08/19/21 04/06/22 vomiting #30 tabs vilazodone 10 mg tablet (Viibryd) 10 mg PO DAILY 04/06/22 04/06/22 Previous Rx's Medication Instructions Recorded ondansetron 4 mg disintegrating 4 mg PO Q8H PRN nausea and 05/01/21 tablet vomiting #30 tabs ondansetron 4 mg disintegrating 4 mg PO Q6H PRN nausea and 05/27/21 tablet vomiting #20 tabs ondansetron HCl 8 mg tablet 8 mg PO Q6H PRN PRN nausea and 07/22/21 vomiting #30 tabs ondansetron HCl 4 mg tablet 4 mg PO Q6H PRN nausea and 08/19/21 vomiting #30 tabs Allergies Allergy/AdvReac Type Severity Reaction Status Date / Time sertraline HCl [From Zoloft] Allergy Severe Anaphylaxsi Verified 04/06/22 12:12 s General NGOZI: 3 PFSH All Active Problems (Updated 04/06/22 @ 15:37 by Hunter Jordan MD) Fall involving snowboard as cause of accidental injury (Acute) Low back pain (Acute) Nausea (Acute) Chronic diarrhea (Acute) Postprandial RUQ pain (Acute) Hemangioma (Acute) Family history of elevated blood lipids (Acute) IUD (intrauterine device) in place (Acute) Irregular menses (Acute) Urinary tract infection (Acute) Social History Smoking/Tobacco Use Status: Current every day Tobacco Type: e-cigarettes Smoking risk assessment performed?: Yes Alcohol Intake: current Alcohol Intake frequency: a few times a month Alcohol type: wine and hard liquor Drug use: Daily Substance use type: marijuana Do you feel safe at home: Yes Do you feel safe in your relationship?: Yes History History 0 Para Hx # Term Pregnancies Multiple births Hx # Pregnancies Ectopic pregnancies AB induced Hx Number of Living Children AB spontaneous Exam Narrative Exam Narrative: General: Uncomfortable-appearing in no acute distress speaking in complete sentences. Head: Normocephalic, atraumatic Ear, nose, mouth, throat: Grossly normal inspection. Normal voice, handling secretions normally. Neck: Trachea midline. Cardiovascular: Well-perfused distal extremities. No murmurs. Respiratory: Nonlabored respiration. Clear lungs bilaterally. Gastrointestinal: Nondistended abdomen. Nontender abdomen. Musculoskeletal: Left knee tenderness on palpation. Skin: Normal for age and race, grossly normal temperature and turgor. No acute rash. Neurologic: Alert and appropriate, no apparent acute deficits. Psychiatric: Mood and manner are appropriate. Grooming and personal hygiene are appropriate.
--- NOTE | 2022-04-06 12:00 | DI.CT_ITS ---
Exam(s) CT LUMBAR SPINE WO EXAM: CT LUMBAR SPINE WO CLINICAL HISTORY: Low back pain status post snowboarding injury. TECHNIQUE: Imaging Protocol: Axial computed tomography images with coronal and sagittal reformatted images were created and reviewed COMPARISON: CT CT ABDOMEN PELVIS WO from 05/01/2021 FINDINGS: Bones: The last intervertebral disc space is designated the L5/S1 level for the numbering purpose of this examination. The vertebral body heights are well maintained. Alignment is satisfactory. No fracture is seen. No gross evidence of significant disc bulging or disc herniation. The visualized SI joints and sacrum are will maintained. Soft Tissues: The paraspinal soft tissues are unremarkable. IMPRESSION: Normal CT examination of the lumbar spine. RADIATION DOSE DELIVERED: 408.82mGy.cm Total DLP DATA REPOSITORY: All CT scans at this facility are submitted to the National Radiology Data Registry (NRDR) Dose Index Registry (DIR) with the [employer] (A[employer]). RADIATION OPTIMIZATION: All CT scans at this facility use at least one of these dose optimization te chniques: automated exposure control; mA and/or kV adjustment per patient size (includes targeted exa ms where dose is matched to clinical indication); or iterative reconstruction.
--- NOTE | 2022-04-06 12:00 | DI.RAD_ITS ---
Exam(s) XR KNEE LT 3V AP,LAT,LAYO EXAM: XR KNEE LT 3V AP,LAT,LAYO CLINICAL HISTORY: Left anterior knee pain status post snowboarding. TECHNIQUE: 2D digital imaging was performed. Three views. COMPARISON: No exams were available for comparison FINDINGS: BONES: No acute fracture is present. No bony destructive lesion is seen. JOINTS: The knee is normally aligned. No joint effusion is seen. SOFT TISSUE: Normal. IMPRESSION: Normal radiographs of the left knee. DATA REPOSITORY: RADIATION DOSE DELIVERED:
[2022-04-06] MEDS: Normal Saline 1,000 ML 1000 ML IV (12:24)
[2022-04-06] MEDS: Lidocaine 5% Patch 1 PATCH TP (12:24)
[2022-04-06] MEDS: Ketorolac 15 MG/ML VIAL IVP (12:24)
[2022-04-06 12:35] LABS: HCT 40.9 % (36.0-46.0); HGB 13.6 g/dL (11.2-15.7); MCH 29.7 pg (27.0-33.0); MCHC 33.3 % (32.0-36.0); MCV 89 fL (80-95); MPV 11.3 fL (8.0-11.0); Platelet Count 214 10^3/uL (130-400); RBC 4.58 10^6/uL (3.93-5.22); RDW 12.2 % (11.7-14.6); RDW-SD 39.9 fL; WBC 9.81 10^3/uL (4.4-10.8)
[2022-04-06 12:54] LABS: Anion Gap 10.4 mmol/L (3-11); BUN 19 mg/dL (7-18); CO2 24.6 mmol/L (21.0-32.0); CREATININE 0.8 mg/dL (0.55-1.02); Calcium 9.3 mg/dL (8.5-10.1); Chloride 103 mmol/L (98-107); Estimated GFR 101.59 (mL/min/1.73m2); Glucose 84 mg/dL (74-106); Potassium 3.9 mmol/L (3.5-5.1); Sodium 138 mmol/L (136-145)
[2022-04-06 12:57] LABS: HCG Qual (Serum) Negative
[2022-04-06 13:06] LABS: ETHANOL BLOOD < 3.0 mg/dL (<10)
== END 2022-04-06 16:20 | disposition home or self-care (01) ==
PROVIDERS: Emergency Provider Emergency Medicine; PCP Physician Assistant Medical
DX: G89.11 Acute pain due to trauma (principal); M54.50 Low back pain, unspecified; M25.562 Pain in left knee; I95.9 Hypotension, unspecified; V00.311A Fall from snowboard, initial encounter; X50.1XXA Overexertion from prolonged static or awkward postures, initial encounter; Y93.23 Activity, snow (alpine) (downhill) skiing, snowboarding, sledding, tobogganing and snow tubing
CPT/HCPCS: 73562; 80048; 85027; 96361; 96374; 99284; 72131; 80320; 84703; J1885

== ENCOUNTER 2022-05-19 10:48 | Outpatient (REF) | payer MEDICAID, SELFPAY | END 2022-05-19 10:49 | disposition home or self-care (01) | LOC: LBN 10:48 | PROVIDERS: PCP Physician Assistant Medical; Visit Provider Physician Assistant | DX: J02.9 Acute pharyngitis, unspecified (principal) | CPT/HCPCS: 87070 ==

== ENCOUNTER 2023-03-31 16:06 | Outpatient (REF) | payer MEDICAID, SELFPAY ==
--- NOTE | 2023-03-31 15:00 | PAPFT_PTH ---
PATIENT: Haylie Ballesteros LOC: [facility]#:[id number] AGE/SX: 33/F ROOM: RE03/31/[address]: Gabby Ferris : 1990 BED: DIS: 03/31/2023 SPEC #: [id number] RECD: 03/31/23 18:44 STATUS: ANIL REKaitlin #: [id number] NEHAL: 03/31/23 15:[address]: Gabby Ferris DEPT: [facility] Cytology RECD BY: Leta Jose Tissues: 1 - CX/ENDOCX FOR PAP SMEARS Procedures: PAP THIN PREP/UVM Screening HPV DNA PROBE Comments: [id number]
[2023-04-03 10:06] LABS: HIV-1/2 Ag & Ab Screen Negative (Negative)
[2023-04-03 10:44] LABS: Hepatitis C Ab w Rflx HCV PCR Negative (Negative)
[2023-04-03 11:31] LABS: Syphilis Serology (RPR) Negative (Negative)
[2023-04-03 12:57] LABS: Chlamydia Result Negative (Negative); GC Result Negative (Negative)
== END 2023-03-31 16:07 | disposition home or self-care (01) ==
LOC: NCHCN 16:06
PROVIDERS: PCP Physician Assistant Medical; Visit Provider Physician Assistant Medical
DX: Z11.3 Encounter for screening for infections with a predominantly sexual mode of transmission (principal)
CPT/HCPCS: 86803; 87389; 87491; 87591; 88142; 86592; 87480; 87510; 87624; 87660

== ENCOUNTER → 2023-05-16 11:51 | Outpatient (CLI) | payer MEDICAID, SELFPAY ==
--- NOTE | 2023-05-16 | DI.MRI_ITS ---
Exam(s) MR LUMBAR SPINE WO EXAM: MR LUMBAR SPINE WO CLINICAL HISTORY: INCONTINENCE OF FECES R15.9 SCIATIC PAIN, HX IBS W/ FECAL INCONTINENCE. TECHNIQUE: Multiplanar multisequence MRI of the Lumbar spine was performed. COMPARISON: CT CT LUMBAR SPINE WO from 04/06/2022 FINDINGS: Bones: The last intervertebral disc space is designated the L5/S1 level for the numbering purpose of this examination. The vertebral body heights are well maintained. Alignment is satisfactory. The si gnal characteristics are unremarkable. 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 Cord: The conus tip ends at the L1 level. It is of normal size and signal intensity. T12-L1: No disc herniations or bulges are present. No central spinal canal or neural foraminal stenos is. L1-2: No disc herniations or bulges are present. No central spinal canal or neural foraminal stenosis . L2-3: No disc herniations or bulges are present. No central spinal canal or neural foraminal stenosis . L3-4: No disc herniations or bulges are present. No central spinal canal or neural foraminal stenosis . L4-5: No disc herniations or bulges are present. No central spinal canal or neural foraminal stenosis . L5-S1: No disc herniations or bulges are present. No central spinal canal or neural foraminal stenosi s. Soft tissues: The visualized SI joints and sacrum are well maintained. The paraspinal soft tissues ar e unremarkable. IMPRESSION: No evidence of focal disc herniation, significant spinal stenosis or neuroforaminal narrowing. DATA REPOSITORY:
== END ==
PROVIDERS: PCP Physician Assistant Medical; Visit Provider Nurse Practitioner Family
DX: M54.59 Other low back pain (principal)
CPT/HCPCS: 72148

== ENCOUNTER 2024-04-22 18:17 | Outpatient (REF) | payer BC, SELFPAY ==
[2024-04-23 19:07] LABS: HIV-1/2 Ag & Ab Screen Negative (Negative)
[2024-04-23 19:10] LABS: Hepatitis C Ab w Rflx HCV PCR Negative (Negative)
[2024-04-24 10:25] LABS: Syphilis Serology (RPR) Negative (Negative)
[2024-04-25 16:15] LABS: Bacterial Vaginosis (BV) Negative (Negative); Candida glabrata Negative (Negative); Candida species group Negative (Negative); Chlamydia Result Negative (Negative); GC Result Negative (Negative); Trichomonas vaginalis Negative (Negative)
== END 2024-04-22 18:18 | disposition home or self-care (01) ==
LOC: NCHCN 18:17
PROVIDERS: PCP Physician Assistant Medical; Visit Provider Physician Assistant Medical
DX: Z11.3 Encounter for screening for infections with a predominantly sexual mode of transmission (principal)
CPT/HCPCS: 81513; 86803; 87389; 87481; 87491; 87591; 87661; 86592